=== PATIENT | female | born 1970 | race Caucasian/White ===

== ENCOUNTER 2018-01-26 11:39 | Emergency (ER) | payer OTHER ==
[~2018-01-26] VITALS: Ht 157.5 cm; Wt 100.0 kg
[2018-01-26 11:56] VITALS: BP 138/64; PULSE 62; RESP 18; TEMP 98.3; O2SAT 100
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
[2018-01-26] MEDS ORDERED: ACETAMINOPHEN/HYDROcodone 325 MG/10 MG TAB PO ONE (13:30)
[2018-01-26] MEDS ORDERED: HYDR-3366 PO (13:32)
== END 2018-01-26 14:12 | disposition home or self-care (01) ==
LOC: NEPD 11:39
DX: S52.501A Unspecified fracture of the lower end of right radius, initial encounter for closed fracture (principal); V89.2XXA Person injured in unspecified motor-vehicle accident, traffic, initial encounter; Y92.410 Unspecified street and highway as the place of occurrence of the external cause
CPT/HCPCS: 29125; 73110